=== PATIENT | male | born 1960 | race Caucasian/White ===

== ENCOUNTER → 2023-08-05 | Outpatient (CLI) | payer MEDICARE ==
--- NOTE | 2023-08-05 21:53 | CT ---
EXAMINATION TYPE: CT soft tissue neck w con DATE OF EXAM: 08/05/2023 6:10 PM COMPARISON: None HISTORY: Tongue and throat ca. CT DLP: 529 mGycm Automated exposure control for dose reduction was used. CONTRAST: CT scan of the neck is performed following with IV Contrast, patient injected with 100 mL of Isovue 3 00. Axial images are obtained, coronal and sagittal reformatted images are reviewed. FINDINGS: The thyroid gland is homogeneous without focal mass or gross enlargement. The larynx including the thyroid, arytenoid and cricoid cartilages as well as the vocal cords are sym metric. There is a 4.7 x 3.7 cm enhancing mass in the right tongue base consistent with neoplasm. The mass ex tends into the right parapharyngeal soft tissues on the right. The epiglottis, aryepiglottic folds, piriform sinuses and vallecula are normal and symmetric. The oropharynx is intact. The submandibular and parotid glands are normal and symmetric. There are multiple enlarged jugular chain lymph nodes bilaterally.. The largest is on the left measur ing 2.1 cm. The largest jugular chain lymph node on the right is 17 mm. The intraorbital contents appear normal and symmetric. Visualized paranasal sinuses and mastoid air cells are well aerated. IMPRESSION: 1. Large enhancing mass in the right tongue base consistent with neoplasm. 2. Multiple enlarged bilateral jugular chain lymph nodes as described above.
== END | disposition home or self-care (01) ==
LOC: RADCTMAIN 14:54
PROVIDERS: ATTEND Radiology Radiation Oncology
DX: R22.1 Localized swelling, mass and lump, neck (principal); C01 Malignant neoplasm of base of tongue; C14.0 Malignant neoplasm of pharynx, unspecified
CPT/HCPCS: 70491; Q9967

== ENCOUNTER → 2024-01-02 | Outpatient (CLI) | payer MEDICARE ==
[2024-01-02 10:59] LABS: African American GFR (CKD) >90 (>60 ml/min/1.73 sqM); Blood Urea Nitrogen 21 mg/dL (9-20); Non-African American GFR(CKD) >90 (>60 ml/min/1.73 sqM)
--- NOTE | 2024-01-02 12:03 | CT ---
EXAMINATION TYPE: CT soft tissue neck w con DATE OF EXAM: 01/02/2024 11:33 AM COMPARISON: 08/05/2023 HISTORY: F/U TONGUE CANCER CT DLP: 657 mGycm Automated exposure control for dose reduction was used. CONTRAST: CT scan of the neck is performed following with IV Contrast, patient injected with 100 mL of Isovue 3 00. Axial images are obtained, coronal and sagittal reformatted images are reviewed. FINDINGS: The right tongue base mass is again seen but has decreased in size from 4.7 x 3.7 cm to approximately 3.2 x 3.0 cm. There is been interval resolution of the neck lymphadenopathy. The submandibular and parotid glands are normal and symmetric. There is minimal atherosclerotic change of the proximal left internal carotid artery but no carotid s tenosis. Thyroid gland is normal and symmetric. The larynx including the cricoid, arytenoid, thyroid cartilage s and vocal cords are normal and symmetric. There is no pharyngeal versus parapharyngeal soft tissue mass in the nasopharynx and the retrocrural pharyngeal soft tissues are normal. The skull base is intact. There is stable pleural-parenchymal scarring in the lung apices, right greater than left. IMPRESSION: 1. Reduction in the size of the right tongue base mass as described above. 2. Resolution of the lymphadenopathy within the neck. 3. No new abnormalities seen. [facility], , 01/02/2024 12:00 PM
== END | disposition home or self-care (01) ==
LOC: RADCTMAIN 07:57
PROVIDERS: ATTEND Radiology Radiation Oncology
DX: C01 Malignant neoplasm of base of tongue (principal); C77.0 Secondary and unspecified malignant neoplasm of lymph nodes of head, face and neck
CPT/HCPCS: 36415; 70491; 82565; 84520

== ENCOUNTER → 2024-01-02 | Outpatient (CLI) | payer MEDICARE ==
--- NOTE | 2024-01-12 23:39 | PE ---
EXAMINATION TYPE: PET CT fusion skull to thigh DATE OF EXAM: 01/02/2024 COMPARISON: CT soft tissue neck 08/05/2023 Prior PET/CT: 07/31/2023 HISTORY: Tongue cancer TECHNIQUE: Following the intravenous administration of 8.85 mCi of F-18 FDG, whole body images are p erformed from the skull base to the midthigh. Images are reviewed on the computer in the coronal, ax ial, and sagittal planes. Reconstructed rotating images are created on independent workstation and r eviewed on the computer. A localization and attenuation correction CT is performed in conjunction w ith the PET scan. Dedicated head and neck imaging is performed. DLP: 532.06 plus 115.72 mGycm SCAN: Subsequent Blood glucose: 104 mg/dL Average Mediastinum SUV: 2.21 Average Liver SUV: 2.75 FINDINGS: Head and neck: No suspicious uptake within the tongue is evident. The posterior left tongue is asymme tric compared to the right. No abnormal uptake. Epiglottis region appears normal. Vocal cord level is symmetrical. Subglottic airway appears unremarkable. NECK: Suspicious uptake within the neck is not identified. No suspicious uptake within the tongue is evident. THORAX: Intermediate uptake is in the posterior lateral right apex, image 64, SUV 2.32. ABDOMEN: No abnormal uptake PELVIS: No abnormal uptake OSSEOUS STRUCTURES: No abnormal uptake LOCALIZATION CT: Previous right tongue mass is not identified. There is thickening through the right posterior lateral apex. Small lymph nodes are within the mediastinum. No enlarged adenopathy is evide nt. Mild coronary artery calcification is present. COMPARISON: Previous uptake within the right posterior tongue and within the bilateral parotid gland region lymph nodes in left neck lymphadenopathy no suspicious uptake within these regions evident on the current exam. IMPRESSION: 1. No suspicious uptake within the posterior right or bilateral parotid region and cervical chain reg ion lymph nodes on prior study. 2. No new suspicious for radiotracer accumulation. 3. Uptake within the posterior lateral right apex is intermediate and is nonspecific. Uptake is somew hat similar comparison. [facility], , 01/12/2024 11:37 PM
== END | disposition home or self-care (01) ==
LOC: RADPETMAIN 07:51
PROVIDERS: ATTEND Radiology Radiation Oncology
DX: C77.0 Secondary and unspecified malignant neoplasm of lymph nodes of head, face and neck
CPT/HCPCS: 78815

== ENCOUNTER 2024-01-22 07:09 | Day surgery (SDC) | payer MEDICARE ==
[2024-01-20 12:59] VITALS: BMI 25.0
[~2024-01-22 07:09] MED LIST: LIDOCAINE 1% (10MG/ML) FOR IV START INTRADERMA PRN
[2024-01-22 07:39] VITALS: TEMP 96.8
--- NOTE | 2024-01-22 07:39 | P.GSHP ---
History of Present Illness H&P Date: 01/22/24 CHIEF COMPLAINT: Colon screen HISTORY OF PRESENT ILLNESS: The patient is a 63-year-old male who presents for colon screen. Lower endoscopy was offered for further evaluation and management. PAST MEDICAL HISTORY: Please see list. PAST SURGICAL HISTORY: Please see list. MEDICATIONS: Please see list. ALLERGIES: Please see list. SOCIAL HISTORY: No illicit drug use FAMILY HISTORY: No reports of Crohn disease or ulcerative colitis. REVIEW OF ORGAN SYSTEMS: CONSTITUTIONAL: No reports of fevers or chills. PHYSICAL EXAM: VITAL SIGNS: Stable GENERAL: Well-developed pleasant in no acute distress. HEENT: No scleral icterus. Extraocular movements grossly intact. Moist buccal mucosa. NECK: Supple without lymphadenopathy. CHEST: Unlabored respirations. Equal bilateral excursions. CARDIOVASCULAR: Regular rate and rhythm. Distal 2+ pulses. ABDOMEN: Soft, nontender, nondistended. MUSCULOSKELETAL: No clubbing, cyanosis, or edema. ASSESSMENT: 1. Colon screen. PLAN: 1. Recommend proceeding with a lower endoscopy Past Medical History Past Medical History: Cancer, Hyperlipidemia, Hypertension, Pulmonary Embolus (PE) Additional Past Medical History / Comment(s): HX TONGUE CANCER, FINISHED TREATMENT 09/2023, RADIATION AND CHEMO. PE's 10/16/23. History of Any Multi-Drug Resistant Organisms: None Reported Past Surgical History: Hernia Repair Additional Past Surgical History / Comment(s): COLONOSCOPY, TONGUE BIOPSY. Past Anesthesia/Blood Transfusion Reactions: No Reported Reaction Smoking Status: Former smoker - Past Family History Mother Family Medical History: No Reported History Medications and Allergies Home Medications Medication Instructions Recorded Confirmed Type Atorvastatin [Lipitor] 20 mg PO HS 08/21/23 01/20/24 History OLANZapine [ZyPREXA] 2.5 mg PO HS PRN 08/28/23 01/20/24 History Lisinopril-Hctz 20-12.5 mg 1 tab PO QAM 01/20/24 01/20/24 History [Zestoretic 20-12.5] Rivaroxaban [Xarelto] 20 mg PO DAILY 01/20/24 01/20/24 History Allergies Allergy/AdvReac Type Severity Reaction Status Date / Time No Known Allergies Allergy Verified 01/22/24 07:30 Surgical - Exam Vital Signs Temp Pulse Resp BP Pulse Ox 96.8 F L 61 16 150/78 98 01/22/24 07:37 01/22/24 07:37 01/22/24 07:37 01/22/24 07:37 01/22/24 07:37
[2024-01-22] MEDS: LACTATED RINGERS 1,000 ML IV SCH (07:52)
[2024-01-22] MEDS: IV FLUID CONTINUATION 1,000 ML IV ONE (07:52)
[2024-01-22] MEDS ORDERED: LIDOCAINE 1% INJ 10MG/ML (20 ML MDV) ONE (07:57)
[2024-01-22] MEDS ORDERED: GLYCOPYRROLATE 0.2 MG/ML 2 ML VIAL ONE (07:57)
[2024-01-22] MEDS ORDERED: PROPOFOL 10 MG/ML 20 ML VIAL IV ONE (07:57)
--- NOTE | 2024-01-22 08:45 | P.PCN ---
Date of Procedure: 01/22/24 Description of Procedure: PREOPERATIVE DIAGNOSIS: Personal history of colon polyps Personal history of tongue cancer Colonoscopy screening POSTOPERATIVE DIAGNOSIS: Tubular adenoma sigmoid colon Severe sigmoid diverticulosis with pandiverticulosis Internal hemorrhoids, grade 3 OPERATION: Colonoscopy to the ileocecal valve and appendiceal orifice, cecum Colonoscopy with cold forceps biopsy SURGEON: Yashira Banegas MD. ANESTHESIA: MAC. INDICATIONS: The patient is an 63-year-old male who presents personal history of colon polyps. Last colonoscopy 5 years. Benefits and risks were described and informed consent was obtained. DESCRIPTION OF PROCEDURE: The patient had undergone GoLytely prep. The patient had been brought into the operating room and laid in the left lateral decubitus position. After adequate intravenous sedation, the rectum was examined with 2% lidocaine jelly. The prost ate was unremarkable. External hemorrhoids were encountered. The rectal tone was within normal limits. No lesions were palpated in the rectal vault. An Olympus colonoscope was advanced until the cecum, ileocecal valve and appendiceal orifice were clearly viewed. The prep was poor to fair with moderate semisolid stools from impacted diverticula. Severe sigmoid diverticulosis was encountered with moderate redundancy requiring abdominal wall pressure and severe pandiverticulosis. Colonic polyps were found and removed. No evidence of focal colitis was found. Retroflexion of the scope demonstrated grade 3 internal hemorrhoids without active bleeding or inflammation. The colon was desufflated. The patient had tolerated the procedure well. Withdrawal time was over 6 minutes. FINDINGS: Aronchick preparation quality scale 3+ (1-5) Internal hemorrhoids, grade 3 External hemorrhoids, grade 3. No bleeding arteriovenous malformations. Sigmoid diverticulosis, severe with moderate redundancy and severe pandiverticulosis requiring abdominal wall pressure Removal of 1 polyps: - Cold forceps biopsy sigmoid colon, 4 mm adenoma No focal colitis. RECOMMENDATIONS: Recommend 2 to 3-day bowel prep due to moderate fecal matter and impacted stool Repeat colonoscopy 3 years, 2026 Plan - Discharge Summary Discharge Rx Participant: No New Discharge Prescriptions: Continue OLANZapine [ZyPREXA] 2.5 mg PO HS PRN PRN Reason: Insomnia Atorvastatin [Lipitor] 20 mg PO HS Rivaroxaban [Xarelto] 20 mg PO DAILY Lisinopril-Hctz 20-12.5 mg [Zestoretic 20-12.5] 1 tab PO QAM Discharge Medication List Atorvastatin [Lipitor] 20 mg PO HS 08/21/23 [History] OLANZapine [ZyPREXA] 2.5 mg PO HS PRN 08/28/23 [History] Lisinopril-Hctz 20-12.5 mg [Zestoretic 20-12.5] 1 tab PO QAM 01/20/24 [History] Rivaroxaban [Xarelto] 20 mg PO DAILY 01/20/24 [History] Follow up Appointment(s)/Referral(s): Yashira Banegas MD [STAFF PHYSICIAN] - As Needed Patient Instructions/Handouts: Diverticulosis (DC), Diverticulosis Diet (GEN) Activity/Diet/Wound Care/Special Instructions: Stop blood thinner 01/25/2024. Repeat colonoscopy 3 years, 2026
[2024-01-22 09:00] VITALS: BP 118/77; PULSE 70; RESP 18
== END 2024-01-22 09:38 | disposition home or self-care (01) ==
LOC: ORWHC2ENDO 07:09
PROVIDERS: ATTEND Surgery Plastic and Reconstructive Surgery
CPT/HCPCS: 45380; 88305

== ENCOUNTER → 2024-06-29 | Outpatient (CLI) | payer MEDICARE ==
--- NOTE | 2024-06-29 14:11 | CT ---
EXAMINATION TYPE: CT soft tissue neck w con CT DLP: 1118.40 mGycm, Automated exposure control for dose reduction was used. DATE OF EXAM: 06/29/2024 1:46 PM COMPARISON: CT soft tissue neck 01/02/2024, 08/05/2023, 07/03/2023, PET/CT 01/02/2024, 07/31/2023. 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 LUNG NODULE. TECHNIQUE: Standard enhanced CT of the neck following intravenous administration of 100 cc of Isovue 300. Axial sections with coronal and sagittal reformats were obtained. FINDINGS: Brain: Visualized portions are grossly unremarkable. Orbits: Unremarkable Sinuses: Frontal sinus 1 cm mucous retention cyst. Remaining paranasal sinuses are clear. Suprahyoid Neck: Asymmetric soft tissue prominence within the left piriform recess (series 4, image 3 4). Previously seen right tongue base mass is no longer visualized with diminutive appearance of the right tongue base from posttreatment change. The oral cavity, parapharyngeal and retropharyngeal spac es are clear and symmetric. The nasopharynx is unremarkable. Infrahyoid Neck: The larynx, hypopharynx, and supraglottic area are clear and symmetric. Parotid Glands: Unremarkable. Submandibular Glands: Unremarkable. Musculoskeletal: No acute osseous pathology. Nasal septal deviation to the left. Reversal of the norm al cervical lordosis. Multilevel degenerative disc disease of the cervical spine. No aggressive osseo us lesion. Lymph nodes: No pathologically enlarged lymph nodes identified. Vascular structures: Visualized major arteries are patent without evidence of aneurysm. Minimal ather osclerotic plaque at the left carotid bifurcation. Thoracic Inlet/airway: Airway is patent. Please referred to dedicated CT chest of the same day for fi ndings. Soft tissues/Thyroid: Thyroid and remainder of the soft tissues are unremarkable. Other: none. IMPRESSION 1. Previously seen right tongue base mass is no longer visualized status post treatment. 2. Asymmetric soft tissue prominence within the left piriform recess. Direct visualization is recomme nded. 3. No lymphadenopathy. [facility], , 06/29/2024 2:09 PM
== END | disposition home or self-care (01) ==
LOC: RADCTMAIN 12:20
PROVIDERS: ATTEND Radiology Radiation Oncology
DX: C01 Malignant neoplasm of base of tongue (principal); C77.0 Secondary and unspecified malignant neoplasm of lymph nodes of head, face and neck; J34.2 Deviated nasal septum
CPT/HCPCS: 70491; 36415; Q9967

== ENCOUNTER → 2024-06-29 | Outpatient (CLI) | payer MEDICARE ==
[2024-06-29 13:12] LABS: African American GFR (CKD) >90 (>60 ml/min/1.73 sqM); Blood Urea Nitrogen 22 mg/dL (9-20); Non-African American GFR(CKD) 88 (>60 ml/min/1.73 sqM)
--- NOTE | 2024-06-29 13:55 | CT ---
EXAMINATION TYPE: CT chest w con CT DLP: 1118.40 mGycm, Automated exposure control for dose reduction was used. DATE OF EXAM: 06/29/2024 1:46 PM COMPARISON: PET/CT 01/02/2024, 07/31/2023. 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 LUNG NODULE. TECHNIQUE: Multiple axial images were obtained through the chest following the administration of 100 cc of Isovue 300. . Coronal and sagittal reformats reviewed. FINDINGS: LUNGS/ PLEURA: No pleural effusion or pneumothorax. Mild paraseptal and centrilobular emphysematous c hanges within the bilateral upper lobes. Stable biapical pleural parenchymal nodular thickening of t he right measuring up to 2.5 cm and the left measuring up to 2.5 cm. No new or enlarging pulmonary no dules. AIRWAY: Patent and unremarkable.. HEART: Size within normal limits.No pericardial effusion No significant coronary artery calcification s. MEDIASTINUM: No evidence of adenopathy. VASCULATURE: No aortic aneurysm. Minimal atherosclerotic calcification of the aorta and its branches . MUSCULOSKELETAL: Mild disc degeneration changes are present throughout the thoracolumbar spine. No ag gressive osseous lesion. No acute osseous abnormality. SOFT TISSUES/LYMPH NODES: Unremarkable. LOWER NECK: Please refer to dedicated CT neck of the same day for findings. UPPER ABDOMEN: Colonic diverticulosis without visualized acute diverticulitis. IMPRESSION: Stable biapical pleural parenchymal scarring with mild emphysematous changes. Not significantly FDG a ctive on prior PET/CT. No evidence for metastatic disease within the chest. [facility], , 06/29/2024 1:53 PM
== END | disposition home or self-care (01) ==
LOC: RADCTMAIN 12:27
PROVIDERS: ATTEND Internal Medicine Hematology & Oncology
DX: C76.0 Malignant neoplasm of head, face and neck (principal); I10 Essential (primary) hypertension; J43.9 Emphysema, unspecified; E78.5 Hyperlipidemia, unspecified; J98.4 Other disorders of lung; Z71.3 Dietary counseling and surveillance
CPT/HCPCS: 71260; 82565; 84520

== ENCOUNTER → 2024-07-02 | Outpatient (CLI) | payer MEDICARE ==
--- NOTE | 2024-07-02 13:00 | PE ---
EXAMINATION TYPE: PET CT fusion skull to thigh DATE OF EXAM: 07/02/2024 COMPARISON: Prior PET/CT January 02, 2024 and older outside study HISTORY: Malignant neoplasm base of tongue diagnosed June 2023. Head and neck cancer. Completed ch emotherapy September 2023. TECHNIQUE: Following the intravenous administration of 10.65 mCi of F-18 FDG, whole body images are performed from the skull base to the midthigh. Images are reviewed on the computer in the coronal, a xial, and sagittal planes. Reconstructed rotating images are created on independent workstation and reviewed on the computer. A localization and attenuation correction CT is performed in conjunction with the PET scan. Dedicated PET/CT imaging of the neck is performed. Blood glucose level equals 87. SCAN: Subsequent Scan FINDINGS: SKULL BASE AND NECK: No recurrent abnormal hypermetabolic uptake right posterior tongue base. No new or recurrent abnormal hypermetabolic uptake bilateral neck region. CHEST, MEDIASTINUM, AND HILAR REGION: No new areas of abnormal hypermetabolic uptake. ABDOMEN AND PELVIS: No new areas of abnormal hypermetabolic uptake. OSSEOUS STRUCTURES: No new areas of abnormal hypermetabolic uptake OTHER CT: Nasal septum remains deviated to left of midline. Persistent moderate biapical pleural/pare nchymal scarring extending along the posterior aspect of the right upper lobe. Moderate coronary mark ry calcification is redemonstrated. Distal colonic diverticulosis again seen. Moderate disc space narrowing and vacuum disc phenomenon corey mbosacral junction. IMPRESSION: No abnormal hypermetabolic uptake to suggest new or recurrent active malignancy. No signi ficant change from most recent prior PET/CT. [facility], , 07/02/2024 12:58 PM
== END | disposition home or self-care (01) ==
LOC: RADPETMAIN 10:06
PROVIDERS: ATTEND Radiology Radiation Oncology
DX: C01 Malignant neoplasm of base of tongue (principal); C77.0 Secondary and unspecified malignant neoplasm of lymph nodes of head, face and neck
CPT/HCPCS: 78815; A9552